=== PATIENT | female | born 1955 | race Asian ===

== ENCOUNTER 2017-01-19 11:21 | Emergency (ER) | payer MEDICAID, MEDICARE ==
[~2017-01-19] VITALS: Ht 162.6 cm; Wt 63.6 kg
[~2017-01-19 11:21] MED LIST: ASPI-1198 PO; ATOR20TA86 PO; LITH300T PO
[2017-01-19] MEDS ORDERED: LOSA50TA37 PO (11:23)
[2017-01-19] MEDS ORDERED: ACETAMINOPHEN 325 MG TABLET PO ONE (12:45)
[2017-01-19 13:04] LABS: BASOPHILS # (AUTO) 0.05 K/uL (0.00-0.20); BASOPHILS % (AUTO) 0.7 % (0.0-2.0); EOSINOPHILS # (AUTO) 0.35 K/uL (0.00-0.70); EOSINOPHILS % (AUTO) 5.02 % (1.0-6.0); HEMATOCRIT 40.8 % (36-46); HEMOGLOBIN 13.7 g/dL (12.0-16.0); LYMPHOCYTES # (AUTO) 2.7 K/uL (1.0-4.8); LYMPHOCYTES % (AUTO) 38.3 % (22.0-44.0); MEAN CORPUSCULAR HEMOGLOBIN 30.6 pg (26.0-34.0); MEAN CORPUSCULAR HGB CONC 33.5 G/dL (31.0-37.0); MEAN CORPUSCULAR VOLUME 91 fL (80-100); MONOCYTES # (AUTO) 0.5 K/uL (0.1-1.0); MONOCYTES % (AUTO) 7.6 % (2.0-9.0); NEUTROPHILS # (AUTO) 3.4 K/uL (1.8-7.7); NEUTROPHILS % (AUTO) 48.4 % (40.0-70.0); PLATELET COUNT (AUTO) 236 K/uL (150-450); RED BLOOD CELL COUNT(AUTO) 4.48 MIL/uL (4.00-5.20); RED CELL DISTRIBUTION WIDTH 13.4 % (11.5-14.5); WHITE BLOOD COUNT (AUTO) 6.9 K/uL (4.5-11.0)
[2017-01-19 13:17] LABS: ANION GAP 8 mmol/L (8-16); CALCIUM, TOTAL 8.8 mg/dL (8.8-10.5); CARBON DIOXIDE 29 mmol/L (22-29); CHLORIDE 103 mmol/L (98-107); CREATININE 0.84 mg/dL (0.60-1.30); GLOMERULAR FILTR. RATE CALC > 60 mL/min (>60); POTASSIUM 4.3 mmol/L (3.5-5.1); SODIUM SERUM 140 mmol/L (136-145); UREA NITROGEN, BLOOD 15 mg/dL (7-18)
[2017-01-19 13:28] LABS: ALANINE AMINOTRANSFERASE 31 U/L (12-78); ALBUMIN 3.6 g/dL (3.4-5.0); ASPARTATE AMINOTRANSFERASE 22 U/L (15-37); BILIRUBIN,TOTAL 0.5 mg/dL (0.1-1.0); TOTAL PROTEIN, SERUM 7.9 g/dL (6.4-8.2)
[2017-01-19 13:54] VITALS: BP 147/69
== END 2017-01-19 14:54 | disposition home or self-care (01) ==
LOC: EMS 11:22
DX: S09.90XA Unspecified injury of head, initial encounter (principal); E78.00 Pure hypercholesterolemia, unspecified; W01.198A Fall on same level from slipping, tripping and stumbling with subsequent striking against other object, initial encounter; Y93.89 Activity, other specified; Y92.89 Other specified places as the place of occurrence of the external cause; Y99.8 Other external cause status
CPT/HCPCS: 70450; 99285

== ENCOUNTER 2017-11-20 23:56 | Emergency (ER) | payer MEDICARE ==
[~2017-11-20] VITALS: Ht 154.9 cm; Wt 65.9 kg
[~2017-11-20 23:56] MED LIST changes: -LITH300T PO; +LOSA50TA25 PO
[2017-11-21] MEDS ORDERED: CeFAZolin 1 GM/DEXTROSE 50 ML IV ONE (00:45)
[2017-11-21] MEDS ORDERED: MUPIROCIN CALCIUM 2% 22 GM OINTMENT TP ONE (00:45)
[2017-11-21 01:21] LABS: BASOPHILS % (AUTO) 0.4 % (0.0-2.0); EOSINOPHILS % (AUTO) 4.9 % (1.0-6.0); HEMOGLOBIN 14.4 g/dL (12.0-16.0); LYMPHOCYTES # (AUTO) 2.7 K/uL (1.0-4.8); LYMPHOCYTES % (AUTO) 32.3 % (22.0-44.0); MEAN CORPUSCULAR HEMOGLOBIN 31.1 pg (26.0-34.0); MEAN CORPUSCULAR HGB CONC 34.3 G/dL (31.0-37.0); MEAN CORPUSCULAR VOLUME 91 fL (80-100); MONOCYTES # (AUTO) 0.5 K/uL (0.1-1.0); MONOCYTES % (AUTO) 5.7 % (2.0-9.0); NEUTROPHILS # (AUTO) 4.8 K/uL (1.8-7.7); NEUTROPHILS % (AUTO) 56.7 % (40.0-70.0); PLATELET COUNT (AUTO) 230 K/uL (150-450); RED BLOOD CELL COUNT(AUTO) 4.63 MIL/uL (4.00-5.20); RED CELL DISTRIBUTION WIDTH 13.5 % (11.5-14.5)
[2017-11-21 02:30] VITALS: BP 136/71
== END 2017-11-21 02:41 | disposition home or self-care (01) ==
LOC: EMS 23:56
DX: L03.113 Cellulitis of right upper limb (principal); E78.00 Pure hypercholesterolemia, unspecified; I10 Essential (primary) hypertension; Z79.82 Long term (current) use of aspirin
CPT/HCPCS: 36415; 85025; 96365; 99284; J0690

== ENCOUNTER 2020-09-27 13:15 | Emergency (ER) | payer MEDICARE ==
[~2020-09-27] VITALS: Ht 157.5 cm; Wt 63.6 kg
[~2020-09-27 13:15] MED LIST changes: -LOSA50TA25 PO; +LOSA50TA37 PO
[2020-09-27 15:32] VITALS: BP 124/76
== END 2020-09-27 15:33 | disposition home or self-care (01) ==
LOC: EMS 13:20
DX: S06.0X9A Concussion with loss of consciousness of unspecified duration, initial encounter (principal); I10 Essential (primary) hypertension; E78.00 Pure hypercholesterolemia, unspecified; Z79.82 Long term (current) use of aspirin; W20.8XXA Other cause of strike by thrown, projected or falling object, initial encounter; Y93.89 Activity, other specified; Y92.89 Other specified places as the place of occurrence of the external cause; Y99.8 Other external cause status
CPT/HCPCS: 99281; Z7502

== ENCOUNTER 2023-01-20 09:09 | Day surgery (SDC) | payer MEDICARE ==
[~2023-01-20] VITALS: Ht 157.5 cm; Wt 63.9 kg
[2023-01-20] VITALS (8 sets, daily range): BP systolic 117–131; BP diastolic 62–72; PULSE 68–82
[~2023-01-20 09:09] MED LIST changes: +ALEN70TA65 PO; +AMLO5TAB66 PO; -ASPI-1198 PO; -ATOR20TA86 PO; +LOSA100T59 PO; -LOSA50TA37 PO; +METF-1211 PO; +ROSU40TA70 PO; +SODIUM CHLORIDE 0.9% 1,000 ML IV ONE; +SODIUM CHLORIDE 0.9% 1,000 ML ONE
[2023-01-20 09:50] LABS: BASOPHILS % (AUTO) 0.6 % (0.0-2.0); EOSINOPHILS % (AUTO) 3.8 % (1.0-6.0); HEMATOCRIT 37.9 % (36-46); HEMOGLOBIN 12.6 g/dL (12.0-16.0); LYMPHOCYTES # (AUTO) 2.3 K/uL (1.0-4.8); LYMPHOCYTES % (AUTO) 27.4 % (22.0-44.0); MEAN CORPUSCULAR HEMOGLOBIN 31.1 pg (26.0-34.0); MEAN CORPUSCULAR HGB CONC 33.1 G/dL (31.0-37.0); MEAN CORPUSCULAR VOLUME 94 fL (80-100); MONOCYTES # (AUTO) 0.7 K/uL (0.1-1.0); NEUTROPHILS # (AUTO) 4.9 K/uL (1.8-7.7); NEUTROPHILS % (AUTO) 59.2 % (40.0-70.0); PLATELET COUNT (AUTO) 196 K/uL (150-450); RED BLOOD CELL COUNT(AUTO) 4.04 MIL/uL (4.00-5.20); WHITE BLOOD COUNT (AUTO) 8.2 K/uL (4.5-11.0)
[2023-01-20 10:01] LABS: CALCIUM, TOTAL 8.7 mg/dL (8.8-10.5); CREATININE 1.07 mg/dL (0.60-1.30); POTASSIUM 4.3 mmol/L (3.5-5.1)
[2023-01-20 10:03] LABS: PROTHROMBIN TIME 10.7 SEC (9.4-11.6)
[2023-01-20] MEDS ORDERED: IOHEXOL 300 MG/ML 100 ML VIAL ONE (10:29)
[2023-01-20] MEDS ORDERED: IOHEXOL 300 MG/ML 50 ML VIAL ONE (10:29)
[2023-01-20] MEDS ORDERED: VERAPAMIL HCL 2.5 MG/ML 2 ML VIAL ONE (10:29)
[2023-01-20] MEDS ORDERED: LIDOCAINE/PF 1% 30 ML VIAL ONE (10:29)
[2023-01-20] MEDS ORDERED: NITROGLYCERIN 50 MG/D5% WATER 250 ML ONE (10:29)
[2023-01-20] MEDS ORDERED: SODIUM BICARBONATE 50 MEQ/50 ML VIAL ONE (10:29)
[2023-01-20] MEDS ORDERED: HEPARIN SODIUM 1000 UNITS/NS 1,000 ML ONE (10:29)
[2023-01-20] MEDS ORDERED: FentaNYL CITRATE PF 100 MCG/2 ML VIAL ONE (11:00)
[2023-01-20] MEDS ORDERED: MIDAZOLAM HCL 2 MG/2 ML VIAL ONE (11:00)
[2023-01-20] MEDS ORDERED: HEPARIN SODIUM,PORCINE 1,000 UNITS/ML 10 ML VIAL IARTER ONE (11:15)
[2023-01-20] MEDS ORDERED: LIDOCAINE 1% 30 ML/SOD BICARB 8.4% 4 ML SQ ONE (11:15)
[2023-01-20] MEDS ORDERED: NITROGLYCERIN/D5W 50 MG/250 ML IV BOTTLE IARTER ONE (11:15)
[2023-01-20] MEDS ORDERED: VERAPAMIL HCL 2.5 MG/ML 2 ML VIAL IARTER ONE (11:15)
[2023-01-20] MEDS ORDERED: IOHEXOL 300 MG/ML 100 ML VIAL IARTER ONE (11:15)
[2023-01-20] MEDS ORDERED: HEPARIN SODIUM 1000 UNITS/NS 1,000 ML IARTER ONE (11:15)
[2023-01-20] MEDS ORDERED: MIDAZOLAM HCL 2 MG/2 ML VIAL IVP ONE (12:00)
[2023-01-20] MEDS ORDERED: FentaNYL CITRATE PF 100 MCG/2 ML VIAL IVP ONE (12:00)
== END 2023-01-20 14:45 | disposition home or self-care (01) ==
LOC: CATHLAB 09:09
PROVIDERS: ATTEND Internal Medicine Cardiovascular Disease
DX: R94.39 Abnormal result of other cardiovascular function study (principal); I20.9 Angina pectoris, unspecified; E11.9 Type 2 diabetes mellitus without complications; I10 Essential (primary) hypertension; M19.90 Unspecified osteoarthritis, unspecified site; R06.00 Dyspnea, unspecified
CPT/HCPCS: 99152; 80048; 85025; 85610; 85730; 36415; 93005; 93458; J3010; J1644; J3490 ×4; J2250; J7030; Q9967